=== PATIENT | female | born 1970 | race American Indian/Alaskan Native ===

== ENCOUNTER 2020-06-26 14:50 | Outpatient (CLI) | payer OTHER ==
--- NOTE | 2020-06-26 15:52 | XRay Report ---
LUMBAR SPINE 3 VIEWS INDICATION / CLINICAL INFORMATION: MAIN. COMPARISON: None available. FINDINGS: No significant skeletal abnormality. Alignment is normal. Signer Name: Asher Alvarado MD FACR Signed: 06/26/2020 3:48 PM Workstation Name: [id number]
== END 2020-06-26 14:51 | disposition home or self-care (01) ==
LOC: XRAY 14:50
PROVIDERS: ATTEND Orthopaedic Surgery
DX: M54.5 Low back pain (principal)
CPT/HCPCS: 72100